=== PATIENT | male | born 1975 | race Caucasian/White ===

== ENCOUNTER 2016-06-06 10:14 | Emergency (ER) | payer OTHER ==
[2016-06-06 10:38] VITALS: BP 158/126
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
--- NOTE | 2016-06-06 12:38 | ERNOTE ---
Upper Extremity HPI - General Time Seen by Provider: 06/06/16 12:28 Source: patient Exam Limitations: no limitations - Immun/Allergies/Home Medications Immunizations: IMMUNIZATION HX Immunizations Up to Date Yes History of Influenza Vaccine No Hx Pneumococcal Vaccination No Allergies/Adverse Reactions: Allergies Allergy/AdvReac Type Severity Reaction Status Date / Time colchicine Allergy Severe throat Verified 06/06/16 10:38 swelling ketorolac tromethamine Allergy Hives Verified 06/06/16 10:38 [From Toradol] morphine Allergy Verified 06/06/16 10:38 Penicillins Allergy Verified 06/06/16 10:38 Home Medications: HOME MEDICATIONS ALPRAZolam [Xanax] 0.5 mg PO TID #20 tablet 01/13/16 [Last Taken Unknown] ALPRAZolam [Xanax] 2 mg PO TID PRN 01/13/16 [Last Taken Unknown] levETIRAcetam [Keppra] 1,000 mg PO DAILY #7 tablet 01/13/16 [Last Taken Unknown] HYDROcodone/ACETAMINOPHEN [[place] 5-325] 1 - 2 tab PO Q6H PRN #12 tab 06/06/16 [ Last Taken Unknown] - History of Present Illness Narrative: Pt presents for severe left hand pain after a 3000 pound object fell onto his left hand approximately 2 hours prior to presentation to our emergency room. Patient absolutely refuses to have an ice pack placed on his left hand. He complains of pain in the dorsal aspect of his left hand. Review of Systems - Review of Systems Constitutional: Present: no symptoms reported Respiratory: Present: no symptoms reported Cardiology: Present: no symptoms reported Musculoskeletal: Present: See HPI, other - swelling of the dorsal aspect of the left hand noted. - Patient's Past Medical History Patient History - Medical: Seizures Patient History - Cardiac/Respiratory: No pertinent hx Patient History - Cancer: No Hx of Cancer Patient History - Surgical Procedures: Appendectomy Patient History - Other: Other - Social History Living Situations: home Abuse History: Hx of Substance Use Psych History: Psychiatric Hx Smoking Status: Current every day smoker Have you smoked in the past 12 months: Yes Alcohol Use: rarely Drug Use: none - Immunizations Immunizations Up to Date: Yes Hx Pneumococcal Vaccination: No History of Influenza Vaccine: No Physical Exam - Physical Exam General Appearance: Present: wd/wn, alert, no apparent distress Neck: Present: normal inspection, nontender Respiratory: Present: no respiratory distress, normal breath sounds, no accessory muscle use, chest nontender Cardiovascular/Chest: Present: regular rate, rhythm, no murmur, normal peripheral pulses Extremity Exam: Present: other - is swelling of the dorsal aspect of the left hand. It is well able to wiggle his fingers however making a tight fist hurts his left hand. R no open lesions and the integrity of the skin has not been violated. He is negative for any obvious fracture as read by me and a radiologist. ED Progress - Vital Signs Vital Signs: Vital Signs 06/06/16 10:36 Temperature 37.6 C H Pulse Rate 110 H Respiratory 14 Rate Blood Pressure 158/126 O2 Sat by Pulse 94 Oximetry - Progress/Reassessment Chief Complaint: Hand Injury/Pain Plan - Plan Plan: This patient has contusion of the left hand and will be treated as such, he states he is allergic to Toradol and that Naprosyn and ibuprofen do not help. Departure Clinical Impression: Contusion of left hand Qualifiers: Encounter type: initial encounter Qualified Code(s): S60.222A - Contusion of left hand, initial encounter - Departure Disposition: Home self-care Condition: Fair Instructions: Contusion, [id number] Prescriptions: HYDROcodone/ACETAMINOPHEN [[place] 5-325] 1 - 2 tab PO Q6H PRN #12 tab PRN Reason: Pain
== END 2016-06-06 12:44 | disposition home or self-care (01) ==
LOC: ER 10:14
DX: S60.222A Contusion of left hand, initial encounter (principal); W20.8XXA Other cause of strike by thrown, projected or falling object, initial encounter; F17.210 Nicotine dependence, cigarettes, uncomplicated; R56.9 Unspecified convulsions

== ENCOUNTER 2016-06-30 12:03 | Emergency (ER) | payer OTHER ==
[2016-06-30 12:15] VITALS: BP 138/93
--- OUTSIDE RECORDS SUMMARY | 2016-06-30 12:23 | XMS REPORT | Continuity of Care Document ---
:1975 Author Organization [facility] ([facility]) Address [address] [place] [address] Phone [phone] Care Team Providers Name Role Phone Oneida Rosas Primary Care Provider [phone] Source Comments This disclosure is being made pursuant to the Care Everywhere program, applicable federal and state laws, and may not contain all informaitonavailable regarding this patient.[facility] ([facility]) Active Allergies and Adverse Reactions Allergen [...] Specialty Providers Description 07/11/2016 Wait List Neurology 08/24/2016 Appointment Neurology Rhiannon Brewster MD Chief Comp: Patient Samantha Floyd MD [address] [place] [address] [phone] (Fax) Reported Reason For Visit Health Maintenance Due Date Last Done Comments Hepatitis B Vaccine (1 of 3 - Primary Series) 1975 Tdap Vaccine 10/06/1986 Lipid Disorder Screening 10/06/1993 MMR Vaccine 10/06/1993 Td Vaccine 10/06/1993 Pneumococcal Vaccine (1 of 1 - PPSV23) 10/06/1994 Influenza Vaccine: Seasonal (Season Ended) 2016 Results from Last 3 Months Not on file
--- NOTE | 2016-06-30 12:37 | ERNOTE ---
Upper Extremity HPI - Narrative Date of Service: 06/30/16 - General Time Seen by Provider: 06/30/16 12:17 Source: patient Exam Limitations: no limitations - Immun/Allergies/Home Medications Immunizations: IMMUNIZATION HX Immunizations Up to Date Yes History of Influenza Vaccine No Hx Pneumococcal Vaccination No Allergies/Adverse Reactions: Allergies Allergy/AdvReac Type Severity Reaction Status Date / Time colchicine Allergy Severe throat Verified 06/30/16 12:15 swelling ketorolac tromethamine Allergy Hives Verified 06/30/16 12:15 [From Toradol] morphine Allergy Verified 06/30/16 12:15 Penicillins Allergy Verified 06/30/16 12:15 Home Medications: HOME MEDICATIONS ALPRAZolam [Xanax] 2 mg PO TID PRN 01/13/16 [Last Taken Unknown] HYDROcodone/ACETAMINOPHEN [[place] 10-325 Tablet] 1 each PO Q8H PRN #10 tablet [Last Taken Unknown] risperiDONE [Risperdal] 1 mg PO DAILY 06/30/16 [Last Taken Unknown] - History of Present Illness Narrative: Patient presents wanting something for shoulder pain. He relates chronic bilateral shoulder pain but its hir right shoulder that is bothering him. This has been bothering him for some time and he reports an upcoming appointment with Dr Mario. His pain is from a tear in his shoulder by his report. There is nothing new about this pain and no new injuries. He denies fever. He denies acute injury. He denies acute focal N/T/W. He tells me he just needs something for pain. He states he has tried ultram but that hasn't helped. He states Vicodin has helped in the past. Occurred: other - chronic Severity: severe Method of Injury: Reports: other - no acute injury, chronic pain from old injury Modifying Factors - (Worsens): Reports: movement Associated Symptoms: Denies: tingling, weakness, numbness distally, loss of feeling Other Injuries: Reports: none Prior Treament: Reports: other - appointment with Dr Mario by report Review of Systems - Review of Systems Constitutional: Absent: fever Respiratory: Absent: shortness of breath Cardiology: Absent: chest pain Gastrointestinal/Abdominal: Present: no symptoms reported Skin: Absent: rash - Patient's Past Medical History Patient History - Medical: Seizures Patient History - Cardiac/Respiratory: No pertinent hx Patient History - Cancer: No Hx of Cancer Patient History - Surgical Procedures: Appendectomy Patient History - Other: Other - Social History Living Situations: home Abuse History: Hx of Substance Use Psych History: Psychiatric Hx Alcohol Use: rarely Drug Use: none - Immunizations Immunizations Up to Date: Yes Hx Pneumococcal Vaccination: No History of Influenza Vaccine: No Physical Exam - Physical Exam General Appearance: Present: alert, no apparent distress Eye Exam: Normal inspection: bilateral, PERRL: bilateral Ears, Nose, Throat: Present: normal ENT inspection Neck: Present: normal inspection Respiratory: Present: no respiratory distress, normal breath sounds, no accessory muscle use, lungs clear Cardiovascular/Chest: Present: regular rate, rhythm, normal peripheral pulses Back Exam: Present: normal range of motion Extremity Exam: Present: other - Strong radial pulse. No shoulder erythema or warmth. ROM limited by pain. No clinical dislocation. Tendernss to anterior joint line palpation. There is nothing to suggest infectious process. Neurological Exam: Present: alert, other - hand strength and sensation normal. there are no acute focal motor or sensory deficits noted. Skin Exam: Absent: skin rash ED Progress - Vital Signs Vital Signs: Vital Signs 06/30/16 12:11 Temperature 36.4 C L Pulse Rate 85 Respiratory 12 Rate Blood Pressure 138/93 O2 Sat by Pulse 94 Oximetry - X-Ray X-Ray #1 X-Ray: shoulder X-ray Comments: I reviewed radiology report - Progress/Reassessment Chief Complaint: Shoulder Injury/Pain Progress Note-Subjective: 06/30/16 12:33 He request Vicoin. I will give him a couple to get through to see Dr Cannon. No neuro vascular deficits. No suggestion of septic arthritis. I discussed warning signs and reasons to return as well as the need for close f/u. Patient states he can take Vicodin without problems. 06/30/16 12:37 Departure Clinical Impression: Shoulder pain - Departure Disposition: Home self-care Condition: Stable Instructions: Shoulder Pain, [id number]-[id number] Additional Instructions: Rest. Follow-up with Dr Mario as soon as possible. No driving with pain medications. Return for increased pain, fever, numbness tingling, weakness or if your condition worsens or changes in any way. Referrals: Oneida Rosas, [employer] [Primary Care Provider] - Prescriptions: HYDROcodone/ACETAMINOPHEN [[place] 10-325 Tablet] 1 each PO Q8H PRN #10 tablet PRN Reason: Pain
== END 2016-06-30 12:45 | disposition home or self-care (01) ==
LOC: ER 12:03
DX: M25.511 Pain in right shoulder (principal)

== ENCOUNTER 2016-07-30 09:23 | Emergency (ER) | payer OTHER ==
--- OUTSIDE RECORDS SUMMARY | 2016-07-30 09:58 | XMS REPORT | Continuity of Care Document ---
:1975 Author Organization [facility] ([facility]) Address [address] [place] [address] Phone [phone] Care Team Providers Name Role Phone Oneida Rosas Primary Care Provider [phone] Source Comments This disclosure is being made pursuant to the Care Everywhere program, applicable federal and state laws, and may not contain all informaitonavailable regarding this patient.[facility] ([facility]) Active Allergies and Adverse Reactions Allergen [...] other 07/01/20052010 examination of other intrathoracic organs Most Recent Encounters Date Type Specialty Providers Description 07/11/2016 Office Visit Neurology Rhiannon Brewster MD Chief Comp: Patient Reported Reason For Visit Social History Tobacco Use Types Packs/Day Years [...] of Care Date Type Specialty Providers Description 08/24/2016 Appointment Neurology Rhiannon Brewster MD Chief Comp: Patient Samantha Floyd MD [address] [place] [address] [phone] (Fax) Reported Reason For Visit Health Maintenance [...]
[2016-07-30 10:06] VITALS: BP 134/98
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
== END 2016-07-30 10:28 | disposition home or self-care (01) ==
LOC: ER 09:23
DX: S50.11XA Contusion of right forearm, initial encounter (principal); W01.0XXA Fall on same level from slipping, tripping and stumbling without subsequent striking against object, initial encounter; Y93.89 Activity, other specified; Y92.007 Garden or yard of unspecified non-institutional (private) residence as the place of occurrence of the external cause; Y99.9 Unspecified external cause status

== ENCOUNTER 2016-08-02 11:16 | Emergency (ER) | payer OTHER ==
--- OUTSIDE RECORDS SUMMARY | 2016-08-02 14:44 | XMS REPORT | Continuity of Care Document ---
:1975 Author Organization [facility] ([facility]) Address [address] [place] [address] Phone [phone] Care Team Providers Name Role Phone Oneida Rosas Primary Care Provider [phone] Source Comments This disclosure is being made pursuant to the Care Everywhere program, applicable federal and state laws, and may not contain all informaitonavailable regarding this patient.[facility] ([facility]) Active Allergies and Adverse Reactions Allergen Noted [...] MD Chief Comp: Patient Samantha Floyd MD [address] [place] [id number] [phone] (Fax) Reported Reason For Visit Health Maintenance [...]
[2016-08-02] MEDS ORDERED: oxyCODONE HCL/ACETAMINOPHEN 1 TAB TABLET PO ONE (15:13)
[2016-08-02] MEDS ORDERED: oxyCODONE HCL/ACETAMINOPHEN 1 TAB TABLET ONE (15:17)
--- NOTE | 2016-08-02 15:17 | ERNOTE ---
Upper Extremity HPI - Narrative Date of Service: 08/02/16 - General Extremities Pain Location: arm: right Time Seen by Provider: 08/02/16 14:49 Source: patient, RN notes reviewed Exam Limitations: no limitations - Immun/Allergies/Home Medications Immunizations: IMMUNIZATION HX Immunizations Up to Date Yes History of Influenza Vaccine No Hx Pneumococcal Vaccination No Allergies/Adverse Reactions: Allergies Allergy/AdvReac Type Severity Reaction Status Date / Time colchicine Allergy Severe throat Verified 08/28/16 18:25 swelling ketorolac tromethamine Allergy Hives Verified 08/28/16 18:25 [From Toradol] morphine Allergy Verified 08/28/16 18:25 Penicillins Allergy Verified 08/28/16 18:25 tramadol AdvReac Other Verified 08/28/16 18:25 Home Medications: HOME MEDICATIONS ALPRAZolam [Xanax] 2 mg PO TID PRN 01/13/16 [Last Taken Unknown] risperiDONE [Risperdal] 1 mg PO DAILY 06/30/16 [Last Taken Unknown] Prazosin HCl [Minipress] 1 mg PO BID 08/02/16 [Last Taken Unknown] Nabumetone 750 mg PO BID #30 tab 08/26/16 [Last Taken Unknown] Silver Sulfadiazine [Silvadene] 1 appl TP BID #400 cream..g. 08/26/16 [Last Taken Unknown] Meloxicam [Mobic] 7.5 mg PO DAILY #14 tab 08/28/16 [Last Taken Unknown] - History of Present Illness Narrative: 40 y/o male ambulatory to the ED for pain in his right forearm. He fell and struck the arm on the edge of a concrete step 3 days ago. He was seen here and an xray was done, which was normal. He was prescribed Dulce for pain, but he reports that this is not working. Location of Incident: home Method of Injury: Reports: fell Reason for Fall: Reports: lost balance Loss of Consciousness: Reports: no loss of consciousness Associated Symptoms: Denies: tingling, weakness, numbness distally Other Injuries: Reports: none Prior Treament: Reports: recently seen, treated by physician Review of Systems - Review of Systems Constitutional: Present: no symptoms reported EYE: Present: no symptoms reported ENT: Present: no symptoms reported Respiratory: Present: no symptoms reported Cardiology: Present: no symptoms reported Gastrointestinal/Abdominal: Absent: nausea, vomiting Genitourinary: Present: no symptoms reported Musculoskeletal: Present: muscle pain. Absent: joint pain, joint swelling Skin: Present: change in color. Absent: rash, lesions, lumps Neurological: Absent: weakness, numbness, tingling Endocrine: Present: no symptoms reported Hematologic/Lymphatic: Absent: easy bruising, easy bleeding Psych: Present: no symptoms reported - Patient's Past Medical History Patient History - Medical: Seizures Patient History - Cardiac/Respiratory: No pertinent hx Patient History - Cancer: No Hx of Cancer Patient History - Surgical Procedures: Appendectomy Patient History - Other: Other - Social History Living Situations: home Abuse History: Hx of Substance Use Psych History: Psychiatric Hx Smoking Status: Current every day smoker Cigarettes Packs Per Day: 0.3 Alcohol Use: rarely Drug Use: none - Immunizations Immunizations Up to Date: Yes Hx Pneumococcal Vaccination: No History of Influenza Vaccine: No Physical Exam - Physical Exam General Appearance: Present: wd/wn, alert, mild distress Respiratory: Present: no respiratory distress, normal breath sounds, no accessory muscle use, lungs clear Cardiovascular/Chest: Present: regular rate, rhythm, no murmur, normal peripheral pulses Extremity Exam: Present: decreased range of motion - right wrist, extremity edema - Severe, right forearm, other - severe tenderness with palpation of right forearm Neurological Exam: Present: alert, oriented, normal mood/affect, no motor/ sensory deficits Skin Exam: Present: warm/dry, other - Severe bruising to right forearm ED Progress - Vital Signs Patient's Vital Signs:: I have reviewed the patient's vital signs. Vital Signs: Vital Signs 08/02/16 11:34 Temperature 37.1 C Pulse Rate 115 H Respiratory 17 Rate Blood Pressure 140/95 O2 Sat by Pulse 97 Oximetry - Progress/Reassessment Chief Complaint: Upper Extremity Injury/Problem Progress:: Unchanged Plan - Plan Plan: Dr. Mario contacted regarding concerns for possible compartment syndrome. Patient is able to move all fingers of the right hand. The hand is warm and has normal color. Radial pulse is strong. Patient has a history of drug seeking behavior, but rx for Percocet given d/t complaints of inadequate pain relief. Departure Clinical Impression: Contusion of forearm, right Qualifiers: Encounter type: subsequent encounter Qualified Code(s): S50.11XD - Contusion of right forearm, subsequent encounter - Departure Disposition: Home Follow Up Needed Condition: Stable Instructions: Contusion, [id number] Additional Instructions: Ice and elevate Contact your primary care doctor for further pain medication
[2016-08-02 15:26] VITALS: BP 142/96
== END 2016-08-02 15:30 | disposition home or self-care (01) ==
LOC: ER 11:16
DX: S50.11XD Contusion of right forearm, subsequent encounter (principal); Z72.0 Tobacco use; W01.198D Fall on same level from slipping, tripping and stumbling with subsequent striking against other object, subsequent encounter

== ENCOUNTER 2016-08-28 10:07 | Emergency (ER) | payer OTHER ==
[2016-08-28 10:25] VITALS: BP 124/91
[2016-08-28] MEDS ORDERED: NALBUPHINE HCL 20 MG/ML AMPUL IM ONE (10:26)
--- OUTSIDE RECORDS SUMMARY | 2016-08-28 10:27 | XMS REPORT | Continuity of Care Document ---
:1975 Author Organization [facility] [place] [address] Care Team Providers Name Role Phone Oneida Rosas [place] Primary Care Provider [phone] Source Comments This disclosure is being made pursuant to the [employer] program and maynot contain all information available regarding this patient.[facility] Active Allergies and Adverse Reactions Allergen Noted Date Severity Reactions Comments Colchicine 08/15/2016 Other (See Comments) Morphine 08/15/2016 High Altered Mental Status Penicillins 08/15/2016 High Hives Toradol 08/15/2016 Low Edema Current Medications Be aware that medications may not be up to date as of this document. Alwaysverify current medications with the patient. Prescription Sig. Disp. Refills Start Date End Date Status alprazolam (XANAX) 2 MG Take 2 mg by mouth Active tablet 3 (three) times daily as needed for Sleep. risperiDONE (RISPERDAL) 1 Take 1 mg by mouth Active MG tablet daily. prazosin (MINIPRESS) 1 MG Take 1 mg by mouth Active capsule nightly. Active Problems Not on file Most Recent Encounters Date Type Specialty Providers Description 08/15/2016 Office Visit Orthopedic Surgery Radhames Ignacio, Contusion of left MD forearm, subsequent encounter (Primary Dx) Social History Tobacco Use Types Packs/Day Years Used Date Former Smoker 0.25 Tobacco Cessation:Counseling Given: No Comments: Alcohol Use Drinks/Week oz/Week Comments No Last Filed Vital Signs Vital Sign Reading Time Taken Blood Pressure 132/98 08/15/2016 11:39 AM CDT Pulse 96 08/15/2016 11:39 AM CDT Temperature 36.9 C (98.5 F) 08/15/2016 11:39 AM CDT Respiratory Rate 18 08/15/2016 11:39 AM CDT Height 1.905 m (6' 3") 08/15/2016 11:39 AM CDT Weight 106.505 kg (234 lb 12.8 oz) 08/15/2016 11:39 AM CDT Body Mass Index 29.35 08/15/2016 11:39 AM CDT Oxygen Saturation 96% 08/15/2016 11:39 AM CDT Plan of Care Date Type Specialty Providers Description 09/05/2016 Appointment Orthopedic Surgery Radhames Ignacio MD [address] [address] [phone] (Fax) Health Maintenance Due Date Last Done Comments Tetanus/Pertussis (1 - Tdap) 10/06/1994 Influenza Immunization (#1) 2015 Results from Last 3 Months Not on file
[2016-08-28] MEDS ORDERED: NALBUPHINE HCL 20 MG/ML AMPUL ONE (10:31)
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
== END 2016-08-28 11:16 | disposition left against medical advice (07) ==
LOC: ER 10:07
DX: S80.211A Abrasion, right knee, initial encounter (principal); X58.XXXA Exposure to other specified factors, initial encounter; Y93.9 Activity, unspecified; Y92.9 Unspecified place or not applicable; Z53.29 Procedure and treatment not carried out because of patient's decision for other reasons

== ENCOUNTER 2016-08-28 18:13 | Emergency (ER) | payer OTHER ==
--- OUTSIDE RECORDS SUMMARY | 2016-08-28 18:42 | XMS REPORT | Continuity of Care Document ---
:1975 Author Organization [facility] Address [place] [address] Care Team Providers Name Role Phone Oneida Rosas [place] Primary Care Provider [phone] Source Comments This disclosure is being made pursuant to the [employer] program and maynot contain all information available regarding this patient.[facility] Active Allergies and Adverse Reactions Allergen Noted [...] 09/05/2016 Appointment Orthopedic Surgery Radhames Ignacio MD [address] [address] [phone] (Fax) Health Maintenance Due Date Last Done Comments Tetanus/Pertussis (1 - Tdap) 10/06/1994 Influenza Immunization (#1) 2015 Results from Last 3 Months Not on file
[2016-08-28] MEDS ORDERED: LIDOCAINE HCL 10 APPL CARTRIDGE TP ONE (18:51)
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
[2016-08-28] MEDS ORDERED: LIDOCAINE HCL 10 APPL CARTRIDGE ONE (19:27)
[2016-08-28 19:54] LABS: Cocaine Ur Negative (NEGATIVE); Urine Barbiturate Negative (NEGATIVE); Urine Opiates Negative (NEGATIVE); Urine PCP Negative (NEGATIVE)
[2016-08-28 20:01] LABS: Urine Benzodiazepines Positive (NEGATIVE); Urine THC Positive (NEGATIVE)
[2016-08-28] MEDS ORDERED: NALBUPHINE HCL 20 MG/ML AMPUL IM ONE (20:15)
[2016-08-28] MEDS ORDERED: NALBUPHINE HCL 20 MG/ML AMPUL ONE (20:44)
[2016-08-28 21:15] VITALS: BP 170/66
== END 2016-08-28 20:58 | disposition home or self-care (01) ==
LOC: ER 18:13
DX: S80.211D Abrasion, right knee, subsequent encounter (principal); Z72.0 Tobacco use; S80.211A Abrasion, right knee, initial encounter; Y93.9 Activity, unspecified; Y92.9 Unspecified place or not applicable; Z53.29 Procedure and treatment not carried out because of patient's decision for other reasons